=== PATIENT | female | born 1935 | race Caucasian/White ===

== ENCOUNTER 2016-08-18 07:08 | Emergency (ER) | payer MEDICARE ==
[~2016-08-18] VITALS: Ht 162.6 cm; Wt 77.1 kg
[~2016-08-18 07:08] MED LIST: ALEN70TA47 PO; ALLP300T PO; ALOE; ASP81TEC PO; ASPRIN PO; DOXY100C2 PO; GARLIC; HYDR-2856 PO; HYDR-3448 PO; HYDR1TAB8 PO; HYDROXYZINE; LAVAZA PO; MAGN400C PO; NF-METANX PO; OMEP20CA12 PO; ONDAN4ODT PO; POTASSIUM; SULF1TAB38 PO; TRAM-21 PO; VALS1TAB74 PO; [UNRECOGNIZED DRUG - OTHER] PO
[2016-08-18] MEDS ORDERED: diphenhydrAMINE 50 MG/ML INJ (BENADRYL) IM ONE (07:30)
[2016-08-18] MEDS ORDERED: TRAM50TA2 PO (07:37)
[2016-08-18] MEDS ORDERED: SITA100T12 PO (07:39)
[2016-08-18] MEDS ORDERED: SULF1TAB35 PO (07:40)
--- NOTE | 2016-08-18 07:48 | ED Integumentary General ---
General Chief Complaint: Allergic Reaction Stated Complaint: HIVES Nursing Triage Note: c/o rash with scattered wheals over body. Onset this morning. Pt has been on Bactrim since Sunday. Source: patient Exam Limitations: no limitations History of Present Illness Time seen by provider: 07:43 Initial Comments The patient is an 81-year-old white female who presents with a chief complaint of an extremely itchy rash. She reports that about a week ago she was placed on Bactrim for an infected finger. She had not previously had any problems with Bactrim but does have allergies stated to penicillin and erythromycin and clindamycin. The course of treatment for the finger has been completed but she now has several areas of extremely itchy eruptions Timing/Duration: this evening Location: generalized Possible Cause: medications Associated Symptoms: denies symptoms Allergies and Home Medications Allergies Coded Allergies: Penicillins (Unverified Allergy, Unknown, 09/22/15) clindamycin (Unverified Allergy, Unknown, 09/22/15) Uncoded Allergies: EES (Allergy, Unknown, 09/22/15) Home Medications Sitagliptin Phosphate 100 Mg Tablet, 100 MG PO, (Reported) Sulfamethoxazole/Trimethoprim 1 Each Tablet, 1 EACH PO BID, (Reported) Tramadol HCl 50 Mg Tablet, 50 MG PO Q8H, (Reported) Constitutional: see HPI EENTM: hearing loss, no symptoms reported Respiratory: no symptoms reported Cardiovascular: no symptoms reported Gastrointestinal: no symptoms reported Musculoskeletal: no symptoms reported Skin: no symptoms reported Psychiatric/Neurological: No Symptoms Reported Endocrine: No Symptoms Reported Hematologic/Lymphatic: No Symptoms Reported Past Umajfmf-Tytgzs-Mgulsa Hx Patient Social History Alcohol Use: Denies Use Recreational Drug Use: No Smoking Status: Never a Smoker Recent Foreign Travel: No Contact w/Someone Who Travel: No Recent Infectious Disease Expo: No Recent Hopitalizations: No Surgeries HX Surgeries: Yes (HERNIA REP) Respiratory Hx Respiratory Disorders: No Cardiovascular Hx Cardiac Disorders: Yes Neurological Hx Neurological Disorders: No Reproductive System Hx Reproductive Disorders: No Genitourinary Hx Genitourinary Disorders: Yes Genitourinary Disorders: Kidney Stones Gastrointestinal Hx Gastrointestinal Disorders: Yes Gastrointestinal Disorders: Gastroesophageal Reflux Musculoskeletal Hx Musculoskeletal Disorders: Yes Musculoskeletal Disorders: Arthritis, Fibromyalgia Endocrine Hx Endocrine Disorders: Yes HEENT HX ENT Disorders: No Cancer Hx Cancer: Yes Cancer: Skin Psychosocial Hx Psychiatric Problems: No Integumentary HX Skin/Integumentary Disorder: No Blood Transfusions Hx Blood Disorders: No Family Medical History Significant Family History: No Pertinent Family Hx Physical Exam Vital Signs Vital Sign - Last 12Hours 08/18/16 07:18 Temp 97.9 Pulse 80 Resp 16 B/P (MAP) 138/69 Pulse Ox 97 Capillary Refill : Less Than 3 Seconds General Appearance: WD/WN, no apparent distress HEENT: normal ENT inspection Neck: non-tender, full range of motion, supple, normal inspection Cardiovascular: normal peripheral pulses, regular rate, rhythm, no edema, no gallop, no JVD, no murmur Respiratory: chest non-tender, lungs clear, normal breath sounds, no respiratory distress, no accessory muscle use Gastrointestinal: normal bowel sounds, non tender, soft, no organomegaly, no pulsatile mass Extremities: normal range of motion, non-tender, normal inspection, no pedal edema, no calf tenderness, normal capillary refill, pelvis stable Neurologic/Psychiatric: 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 There are multiple raised welts with in the erythema. She states there is similar eruption and scattered areas on her body but especially the right axilla. Progress/Results/Core Measures Results/Orders My Orders Orders - PREM AARON MD Diphenhydramine Injection (Benadryl Inje (08/18/16 07:30) Medications Given in ED Current Medications Medications Dose Ordered Sig/Xenia Route Start Time Stop Time Status Last Admin Dose Admin Diphenhydramine HCl 50 mg ONCE ONCE IM 08/18/16 07:30 08/18/16 07:31 DC 08/18/16 07:32 50 MG Vital Signs/I&O Vital Sign - Last 12Hours 08/18/16 08/18/16 07:18 07:32 Temp 97.9 97.9 Pulse 80 Resp 16 B/P (MAP) 138/69 Pulse Ox 97 Blood Pressure Mean: 92 Departure Communication Progress Notes Was discussed with patient that the timeframe is certainly consistent with this being a sulfa reaction she should not take any sulfa containing drugs in the future. Impression Impression: Primary Impression: Urticaria due to drug allergy Disposition: HOME, SELF-CARE Condition: Improved Departure-Patient Inst. Decision time for Depature: 07:50 Referrals: EILEEN CHANEL DO (PCP/Family) Primary Care Physician Patient Instructions: Drug Allergy Add. Discharge Instructions: All discharge instructions reviewed with patient and/or family. Voiced understanding. Acquire Benadryl [id number] from the pharmacy. Take 25-50 mg every 4 hours as needed to control itching. Acquire Cortizone 10 also [id number]. Apply this similarly to affected areas as often as every 4 hours. Consider yourself allergic to sulfa drugs. Avoid hot bath or shower for at least 48 hours after resolution of rash. You may take tepid showers PREM AARON MD Aug 18, 2016 07:48
[2016-08-18] MEDS ORDERED: methylPREDNISolone 125 MG (Solu-MEDROL) VIAL IM ONE (08:00)
[2016-08-18 08:19] VITALS: BP 134/70
== END 2016-08-18 08:19 | disposition home or self-care (01) ==
LOC: EDUNIT# 07:08 → ER 07:09
DX: L50.9 Urticaria, unspecified (principal); T37.0X5A Adverse effect of sulfonamides, initial encounter
CPT/HCPCS: 96372; 99282

== ENCOUNTER → 2018-03-07 | Outpatient (CLI) | payer MEDICARE ==
[~2018-03-07] MED LIST changes: +SITA100T12 PO; +SULF1TAB35 PO; +TRAM50TA2 PO
--- NOTE | 2018-03-07 17:44 | Diagnostic Imaging Report ---
INDICATION: Hip pain after fall. Two views were obtained. FINDINGS: The alignment is normal. There is no fracture or dislocation. Soft tissues are unremarkable. IMPRESSION: No acute fracture or dislocation. Dictated by: Dictated on workstation # [id number]
--- NOTE | 2018-03-07 17:45 | Diagnostic Imaging Report ---
INDICATION: Pain. Three views were obtained. FINDINGS: The alignment is normal. There is no acute fracture or dislocation. Soft tissues are unremarkable. IMPRESSION: No acute fracture or dislocation. Dictated by: Dictated on workstation # [id number]
== END ==
LOC: RAD 17:08
PROVIDERS: ATTEND Family Medicine
DX: M25.521 Pain in right elbow (principal); M25.551 Pain in right hip; W19.XXXA Unspecified fall, initial encounter
CPT/HCPCS: 73080; 73502

== ENCOUNTER 2018-04-19 20:13 | Emergency (ER) | payer MEDICARE ==
[~2018-04-19] VITALS: Ht 170.2 cm; Wt 74.8 kg
--- OUTSIDE RECORDS SUMMARY | 2018-04-19 20:45 | XMS REPORT | Continuity of Care Document ---
Author Author [facility] Organization [facility] Address Unknown Phone Unavailable Allergies Active Description Code Type Severity Reaction Onset Reported/Identified Relationship to Patient Clinical Status Yes clindamycin [id number] Drug Allergy Unknown N/A 09/22/2015 Yes EES EES Unknown N/ A 09/22/2015 Yes Penicillins [id number] Drug Allergy Unknown N/A 09/22/2015 Medications There is no data. Problems Date Dx Coded Attending Type Code Diagnosis Diagnosed By 12/29/2012 LANDON SHANNON, EARLINE Laboy Ot 682.3 CELLULITIS OF ARM 12/29/2012 EARLINE NAVARRETE MD Ot 719.42 JOINT PAIN-UP/ARM 09/22/2015 DIONTE RODRIGUEZ DO Ot M85.872 OT DISRD OF BONE DENSITY AND STRUCTURE, 09/22/2015 DIONTE RODRIGUEZ DO Ot S93.602A UNSPECIFIED SPRAIN OF LEFT FOOT, INITIAL 09/22/2015 DIONTE RODRIGUEZ DO Ot W19.XXXA UNSPECIFIED FALL, INITIAL ENCOUNTER 09/22/2015 DIONTE RODRIGUEZ DO Ot Y99.8 OTHER EXTERNAL CAUSE STATUS 09/23/2015 DIONTE RODRIGUEZ DO, Ot M85.872 OT DISRD OF BONE DENSITY AND STRUCTURE, 09/23/2015 DIONTE RODRIGUEZ DO, Ot S93.602A UNSPECIFIED SPRAIN OF LEFT FOOT, INITIAL 09/23/2015 DIONTE RODRIGUEZ DO Ot W19.XXXA UNSPECIFIED FALL, INITIAL ENCOUNTER 09/23/2015 DIONTE RODRIGUEZ DO Ot Y99.8 OTHER EXTERNAL CAUSE STATUS 09/28/2015 DIONTE RODRIGUEZ DO, Ot M85.872 OTH DISRD OF BONE DENSITY AND STRUCTURE, 09/28/2015 DIONTE RODRIGUEZ DO Ot S93.602A UNSPECIFIED SPRAIN OF LEFT FOOT, INITIAL 09/28/2015 DIONTE RODRIGUEZ DO Ot W19.XXXA UNSPECIFIED FALL, INITIAL ENCOUNTER 09/28/2015 DIONTE RODRIGUEZ DO Ot Y99.8 OTHER EXTERNAL CAUSE STATUS 08/18/2016 PREM AARON MD Ot L50.9 URTICARIA, UNSPECIFIED 08/18/2016 PREM AARON MD Ot T37.0X5A ADVERSE EFFECT OF SULFONAMIDES, INITIAL 03/08/2018 YANIQUE DO, EILEEN S Ot 719.46 JOINT PAIN-L/LEG 03/08/2018 TINANDER DO, EILEEN S Ot 719.66 JOINT SYMPTOM NEC-L/LEG 04/01/2018 TINANDER DO, EILEEN S Ot M25.521 PAIN IN RIGHT ELBOW 04/01/2018 TINAND DO, EILEEN S Ot M25.551 PAIN IN RIGHT HIP 04/01/2018 TINAND DO, EILEEN S Ot W19.XXXA UNSPECIFIED FALL, INITIAL ENCOUNTER 04/18/2018 YANIQUE DO, EILEEN S Ot M25.521 PAIN IN RIGHT ELBOW 04/18/2018 TINAND DO, EILEEN S Ot M25.551 PAIN IN RIGHT HIP 04/18/2018 TINAND DO, EILEEN S Ot W19.XXXA UNSPECIFIED FALL, INITIAL ENCOUNTER Procedures There is no data. Results There is no data. Encounters ACCT No. Visit Date/Time Discharge Status Pt. Type Provider Facility Loc./Unit Complaint [id number] 03/07/2018 17:08:00 03/07/2018 23:59:59 CLS Outpatient DARVIN SADLER DOLINE S [facility] RAD FALL W/ L HIP/ ELBOW PAIN [id number] 08/18/2016 07:09:00 08/18/2016 08:19:00 DIS Emergency PREM AARON MD [facility] ER HIVES [id number] 09/22/2015 14:28:00 09/22/2015 16:03:00 DIS Emergency DIONTE RODRIGUEZ DO [facility] ER FALL/LEFT FOOT INJURY [id number] 02/11/2014 14:51:00 02/11/2014 23:59:59 CLS Outpatient SEGUN EILEEN JI S [facility] RAD R KNEE PAIN/ CREPITUS [id number] 12/29/2012 09:17:00 12/29/2012 10:40:00 DIS Emergency LANDON SHANNON, EARLINE Laboy [facility] ER CONFUSED PAIN IN ELBOW AND SHOULDER 08/02/11 03/07/2018 14:39:44 03/07/2018 23:59:59 CLS Outpatient Eileen Sadler
[2018-04-19 23:04] LABS: BASOPHILS % (AUTO) 0 % (0-10); EOSINOPHILS # (AUTO) 0.2 10^3/uL (0.0-0.3); EOSINOPHILS % (AUTO) 3 % (0-10); HEMATOCRIT 35 % (35-52); HEMOGLOBIN 11.7 G/DL (11.5-16.0); LYMPHOCYTES # (AUTO) 1.5 X 10^3 (1.0-4.0); LYMPHOCYTES % (AUTO) 20 % (12-44); MEAN CORPUSCULAR HEMOGLOBIN 29 PG (25-34); MEAN CORPUSCULAR HGB CONC 33 G/DL (32-36); MEAN CORPUSCULAR VOLUME 87 FL (80-99); MONOCYTES # (AUTO) 0.7 X 10^3 (0.0-1.0); MONOCYTES % (AUTO) 9 % (0-12); NEUTROPHILS % (AUTO) 67 % (42-75); PLATELET COUNT 177 10^3/uL (130-400); RED BLOOD COUNT 4.05 10^6/uL (4.35-5.85); RED CELL DISTRIBUTION WIDTH 13.5 % (10.0-14.5); WHITE BLOOD COUNT 7.4 10^3/uL (4.3-11.0)
[2018-04-19 23:23] LABS: ALBUMIN 4.1 GM/DL (3.2-4.5); BILIRUBIN,TOTAL 1.2 MG/DL (0.1-1.0); CALCIUM 10.4 MG/DL (8.5-10.1); CREATININE SERUM 1.04 MG/DL (0.60-1.30); POTASSIUM 3.7 MMOL/L (3.6-5.0); TOTAL PROTEIN 7.7 GM/DL (6.4-8.2)
[2018-04-20 01:14] LABS: BACTERIA,URINE LARGE /HPF; BILIRUBIN,URINE NEGATIVE (NEGATIVE); CLARITY,URINE VERY CLOUDY; COLOR,URINE YELLOW; GLUCOSE, URINE (UA) 4+ (NEGATIVE); KETONES,URINE NEGATIVE (NEGATIVE); LEUKOCYTE ESTERASE ,URINE 2+ (NEGATIVE); NITRITE,URINE NEGATIVE (NEGATIVE); PH,URINE 6 (5-9); PROTEIN,URINE NEGATIVE (NEGATIVE); SQUAMOUS EPITHELIAL CELL,UR 0-2 /HPF; UROBILINOGEN,URINE NORMAL (NORMAL)
--- NOTE | 2018-04-20 01:21 | ED Fall/Injury ---
General Chief Complaint: Trauma-Non Activation Stated Complaint: FALL/L HIP AND ARM PAIN Nursing Triage Note: Pt brought to ED by family. Family reports pt has dementia and when pt was getting up from reciner pt forgot to use recliner and fell when trying to walk. Pt c/o R hand pain, and L hip and elbow pain. Pt has hematoma to R thumb, large amount of swelling to L elbow. Family reports fall three weeks ago. Source: patient Exam Limitations: no limitations History of Present Illness Date Seen by Provider: Apr 19, 2018 Time Seen by Provider: 21:45 Initial Comments This 82-year-old woman is brought to the emergency room by her family with concerns about injuries she sustained from a fall. She fell onto her left side in late February and had some minor injuries at that time. Tonight she was getting up from her recliner and forgot to use the walker. As a result she fell. The fall was not witnessed. She denies any injury or pain to her head. She complains of pain at the left hip, right thumb, and left elbow. She has significant swelling at the left elbow site. Patient does have dementia and is hard of hearing. Temperature is 100.0. She has no other signs or symptoms of acute infectious illness. Location Injury Occurred: home Allergies and Home Medications Allergies Coded Allergies: Penicillins (Unverified Allergy, Unknown, 09/22/15) clindamycin (Unverified Allergy, Unknown, 09/22/15) Uncoded Allergies: EES (Allergy, Unknown, 09/22/15) Home Medications Sulfamethoxazole/Trimethoprim 1 Each Tablet, 1 EACH PO BID, (Reported) Sulfamethoxazole/Trimethoprim 1 Each Tablet, 1 EACH PO BID Prescribed by: EARLINE ARMENDARIZ on 04/20/18 0136 Tramadol HCl 50 Mg Tablet, 50 MG PO Q8H, (Reported) Patient Home Medication List Home Medication List Reviewed: Yes Review of Systems Review of Systems Constitutional: see HPI Eyes: No Symptoms Reported Ears, Nose, Mouth, Throat: no symptoms reported Respiratory: no symptoms reported Cardiovascular: no symptoms reported Gastrointestinal: no symptoms reported Genitourinary: no symptoms reported : No Musculoskeletal: see HPI Skin: no symptoms reported Psychiatric/Neurological: No Symptoms Reported Past Uqbilff-Qcdbvl-Exgpcl Hx Patient Social History Alcohol Use: Denies Use Recreational Drug Use: No 2nd Hand Smoke Exposure: No Recent Foreign Travel: No Contact w/Someone Who Travel: No Recent Infectious Disease Expo: No Recent Hopitalizations: No Physical Abuse: No Sexual Abuse: No Past Medical History Surgeries: Yes (HERNIA REP) Respiratory: No Cardiac: Yes Neurological: No Reproductive Disorders: No Kidney Stones Gastrointestinal: Yes Gastroesophageal Reflux Musculoskeletal: Yes Arthritis, Fibromyalgia Endocrine: Yes Cancer: Yes Skin Psychosocial: No Integumentary: No Blood Disorders: No Family Medical History No Pertinent Family Hx Physical Exam Vital Signs Vital Signs - First Documented 04/19/18 21:20 Temp 100.0 Pulse 95 Resp 18 B/P (MAP) 170/75 (106) Pulse Ox 96 O2 Delivery Room Air Capillary Refill : Less Than 3 Seconds Height, Weight, BMI Height: 5'7.00" Weight: 165lbs. oz. 74.183582bk; BMI Method:Stated General Appearance: WD/WN, no apparent distress HEENT: PERRL/EOMI, normal ENT inspection Neck: non-tender, normal inspection Cardiovascular: regular rate, rhythm, no edema, no murmur Respiratory: lungs clear, normal breath sounds, no respiratory distress, no accessory muscle use Gastrointestinal: normal bowel sounds, non tender, soft Extremities: no pedal edema, other (swelling and tenderness to the posterior left elbow. Bruising at the base of the right thumb with tenderness. Tenderness to the left hip with palpation and pain with rotation of the left hip. 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, no motor/sensory deficits, alert, normal mood/affect, other (Confused conversation from dementia at baseline) Skin: normal color, warm/dry [place] Coma Score Best Eye Response: (4) Open Spontaneously Best Verbal Response: (4) Confused Conversation Best Motor Response: (6) Obeys Commands [place] Total: 14 Progress/Results/Core Measures Results/Orders Lab Results Laboratory Tests Test 04/19/18 22:55 04/20/18 00:43 Range/Units White Blood Count 7.4 4.3-11.0 10^3/uL Red Blood Count 4.05 L 4.35-5.85 10^6/uL Hemoglobin 11.7 11.5-16.0 G/DL Hematocrit 35 35-52 % Mean Corpuscular Volume 87 80-99 FL Mean Corpuscular Hemoglobin 29 25-34 PG Mean Corpuscular Hemoglobin Concent 33 32-36 G/DL Red Cell Distribution Width 13.5 10.0-14.5 % Platelet Count 177 130-400 10^3/uL Mean Platelet Volume 10.0 7.4-10.4 FL Neutrophils (%) (Auto) 67 42-75 % Lymphocytes (%) (Auto) 20 12-44 % Monocytes (%) (Auto) 9 0-12 % Eosinophils (%) (Auto) 3 0-10 % Basophils (%) (Auto) 0 0-10 % Neutrophils # (Auto) 5.0 1.8-7.8 X 10^3 Lymphocytes # (Auto) 1.5 1.0-4.0 X 10^3 Monocytes # (Auto) 0.7 0.0-1.0 X 10^3 Eosinophils # (Auto) 0.2 0.0-0.3 10^3/uL Basophils # (Auto) 0.0 0.0-0.1 10^3/uL Sodium Level 136 135-145 MMOL/L Potassium Level 3.7 3.6-5.0 MMOL/L Chloride Level 105 98-107 MMOL/L Carbon Dioxide Level 18 L 21-32 MMOL/L Anion Gap 13 5-14 MMOL/L Blood Urea Nitrogen 13 7-18 MG/DL Creatinine 1.04 0.60-1.30 MG/DL Estimat Glomerular Filtration Rate 50 BUN/Creatinine Ratio 13 Glucose Level 266 H 70-105 MG/DL Calcium Level 10.4 H 8.5-10.1 MG/DL Corrected Calcium 10.3 H 8.5-10.1 MG/DL Total Bilirubin 1.2 H 0.1-1.0 MG/DL Aspartate Amino Transf (AST/SGOT) 32 5-34 U/L Alanine Aminotransferase (ALT/SGPT) 24 0-55 U/L Alkaline Phosphatase 77 40-136 U/L C-Reactive Protein High Sensitivity 0.37 0.00-0.50 MG/DL Total Protein 7.7 6.4-8.2 GM/DL Albumin 4.1 3.2-4.5 GM/DL Urine Color YELLOW Urine Clarity VERY CLOUDY H Urine pH 6 5-9 Urine Specific [place] 1.020 1.016-1.022 Urine Protein NEGATIVE NEGATIVE Urine Glucose (UA) 4+ H NEGATIVE Urine Ketones NEGATIVE NEGATIVE Urine Nitrite NEGATIVE NEGATIVE Urine Bilirubin NEGATIVE NEGATIVE Urine Urobilinogen NORMAL NORMAL MG/DL Urine Leukocyte Esterase 2+ H NEGATIVE Urine RBC (Auto) NEGATIVE NEGATIVE Urine RBC NONE /HPF Urine WBC 10-25 H /HPF Urine Squamous Epithelial Cells 0-2 /HPF Urine Crystals NONE /LPF Urine Bacteria LARGE H /HPF Urine Casts NONE /LPF Urine Mucus NEGATIVE /LPF Urine Culture Indicated YES My Orders Orders - EARLINE NAVARRETE MD Chest 1 View, Ap/Pa Only (04/19/18 21:56) Elbow, Left, 3 Views (04/19/18 21:56) Hand, Right, 3 Views (04/19/18 21:56) Pelvis With Left Hip 2-3 Views (04/19/18 21:56) Cbc With Automated Diff (04/19/18 21:56) Comprehensive Metabolic Panel (04/19/18 21:56) Hs C Reactive Protein (04/19/18 21:56) Ua Culture If Indicated (04/19/18 21:56) Saline Lock/Iv-Start (04/19/18 21:56) Ct Extremity Upper Left Wo (04/20/18 00:01) Urine Culture (04/20/18 00:43) Sulfamethoxazole/Trimet Ds Tab (Bactrim (04/20/18 01:45) Vital Signs/I&O 04/19/18 21:20 Temp 100.0 Pulse 95 Resp 18 B/P (MAP) 170/75 (106) Pulse Ox 96 O2 Delivery Room Air Blood Pressure Mean: 106 Progress Progress Note : Progress Note Patient was thoroughly imaged. There is questionable lucency on the left elbow x-ray. This was followed by CT which showed no fracture. Because of patient's borderline temperature, labs were assessed along with a urinalysis. There was suggestion of urinary tract infection. This was treated with Bactrim. Bactrim was selected due to penicillin allergy and prior sensitivity to Bactrim on UA. Diagnostic Imaging Diagonstic Imaging: Xray Plain Films/CT/US/NM/MRI: chest Comments Chest x-ray viewed by me. Report not yet available. No acute features identified. Diagonstic Imaging: Xray Plain Films/CT/US/NM/MRI: hand Comments Right hand x-ray viewed by me. Report not yet available. No acute injuries identified. There is significant degenerative and arthritic change. Diagonstic Imaging: Xray Plain Films/CT/US/NM/MRI: elbow Comments X-ray of the left elbow viewed by me. Compared with prior. Report not yet available. There is questionable lucency of the distal femur. Follow-up with CT was ordered. Diagonstic Imaging: Xray Plain Films/CT/US/NM/MRI: pelvis, hip Comments X-ray of the left hip and pelvis was viewed by me. Report not yet available. No acute injuries identified. Diagonstic Imaging: CT Plain Films/CT/US/NM/MRI: elbow Comments CT of the left elbow viewed by me and [facility] report reviewed. No acute injuries identified. Departure Impression Primary Impression: Fall on same level Qualified Codes: W18.30XA - Fall on same level, unspecified, initial encounter Additional Impressions: Urinary tract infection Qualified Codes: N39.0 - Urinary tract infection, site not specified Contusion of right hand Qualified Codes: S60.221A - Contusion of right hand, initial encounter Injury of left elbow Qualified Codes: S59.902A - Unspecified injury of left elbow, initial encounter Left hip pain Disposition: HOME, SELF-CARE Condition: Improved Departure-Patient Inst. Decision time for Depature: 01:30 Referrals: EILEEN CHANEL DO (PCP/Family) Primary Care Physician Patient Instructions: Urinary Tract Infection, Adult (DC) Add. Discharge Instructions: Drink plenty of clear liquids. Complete your antibiotic as prescribed. Follow-up with your primary care provider early next week to review urine culture results. When walking always use your walker. For pain may take ibuprofen up to 200 mg every 6 hours as needed. You may also take Tylenol (acetaminophen) up to 1000 mg every 6 hours as needed. Icing affected areas in 20 minute intervals may also be helpful in reducing pain and swelling. Return to emergency room if symptoms worsen. All discharge instructions reviewed with patient and/or family. Voiced understanding. Scripts Sulfamethoxazole/Trimethoprim (Bactrim Ds Tablet) 1 Each Tablet 1 EACH PO BID, #14 TAB Prov: EARLINE NAVARRETE MD 04/20/18 Copy Copies To 1: EILEEN CHANEL JOSHUA T MD Apr 20, 2018 01:21
[2018-04-20] MEDS ORDERED: SULF1TAB35 PO (01:36)
[2018-04-20] MEDS ORDERED: TRIM/SULFAMETH 160/800 (SEPTRA DS) TAB PO ONE (01:45)
[2018-04-20 01:46] VITALS: BP 136/75
--- NOTE | 2018-04-20 06:21 | Diagnostic Imaging Report ---
EXAMINATION: Left elbow at 1026 PM INDICATION: Fell, elbow pain Three views were obtained. The recent left elbow exam of 03/07/2018 failed to show any sign of an acute bony abnormality. On this study, there is still no fracture, dislocation or acute bony abnormality evident. The posterior fat-pad of the elbow joint is not elevated. However, in the interval since the prior exam soft tissue edema has developed along the posterior aspect of the elbow joint. This may be related to soft tissue edema alone or perhaps olecranon bursitis. Clinical followup is recommended. IMPRESSION: 1. There is no evidence for an acute bony abnormality. 2. The soft tissue edema along the posterior aspect of the elbow joint could be secondary to olecranon bursitis. Clinical followup is recommended. Dictated by: Dictated on workstation # [id number]
--- NOTE | 2018-04-20 06:40 | Diagnostic Imaging Report ---
EXAMINATION: Right hand at 1022 PM INDICATION: Injury, hand pain Three views were obtained. There are no prior studies available for comparison. There is no fracture, dislocation or acute bony abnormality evident. 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 There is also moderate narrowing of the radiocarpal joint and mild degenerative disease of the triscaphe joint. The soft tissues are unremarkable. IMPRESSION: 1. There is no evidence for an acute bony abnormality. 2. There is degenerative disease involving the hand as described above. Dictated by: Dictated on workstation # [id number]
--- NOTE | 2018-04-20 06:46 | Diagnostic Imaging Report ---
EXAMINATION: Pelvis and left hip at 1040 PM INDICATION: Hip pain A single AP view of the pelvis and AP and lateral views of the left hip were obtained. There is no fracture, dislocation or acute bony abnormality evident. There is mild degenerative disease involving both hip joints. The degenerative changes involving the left hip are similar to the prior exam of 03/02/2018. There is also mild sclerosis of the sacroiliac joints bilaterally. The soft tissues are unremarkable. IMPRESSION: There is no evidence for an acute bony abnormality. Dictated by: Dictated on workstation # [id number]
--- NOTE | 2018-04-20 06:47 | Diagnostic Imaging Report ---
EXAMINATION: Supine AP chest at 1038h. INDICATION: Fell, chest pain The heart is enlarged and similar to the CT chest exam of 12/12/2011. The lungs are clear. There is no evidence for failure, pneumonia or for a pleural effusion. The mediastinum is not widened. The osseous structures are intact. IMPRESSION: There is cardiomegaly but there is no evidence for an acute cardiopulmonary abnormality. Dictated by: Dictated on workstation # [id number]
--- NOTE | 2018-04-20 07:21 | Diagnostic Imaging Report ---
PROCEDURE: CT left upper extremity without contrast. TECHNIQUE: Multiple contiguous axial images were obtained through the left upper extremity without the use of intravenous contrast. INDICATION: Injury, elbow pain The plain film examination of the elbow joint performed prior to the study failed to show any sign of an acute bony abnormality. On this exam, there is still no fracture, dislocation or acute bony abnormality evident. There is mild degenerative disease of the elbow joint. There is no sign of a loose body or of a joint effusion. As suggested on the plain film exam there is soft tissue edema along the posterior aspect of the elbow joint. This could be secondary to olecranon bursitis. IMPRESSION: 1. There is no evidence for an acute bony abnormality. 2. The soft tissue edema along the posterior aspect of the elbow joint may be related to olecranon bursitis. Clinical followup is recommended. Dictated by: Dictated on workstation # [id number]
== END 2018-04-20 01:46 | disposition home or self-care (01) ==
LOC: EDUNIT# 20:13 → ER 20:14
DX: S60.221A Contusion of right hand, initial encounter (principal); S59.902A Unspecified injury of left elbow, initial encounter; M25.552 Pain in left hip; N39.0 Urinary tract infection, site not specified; K21.9 Gastro-esophageal reflux disease without esophagitis; F03.90 Unspecified dementia, unspecified severity, without behavioral disturbance, psychotic disturbance, mood disturbance, and anxiety; R40.2142 Coma scale, eyes open, spontaneous, at arrival to emergency department; R40.2242 Coma scale, best verbal response, confused conversation, at arrival to emergency department; R40.2362 Coma scale, best motor response, obeys commands, at arrival to emergency department; Z85.828 Personal history of other malignant neoplasm of skin; Z88.0 Allergy status to penicillin; Z88.8 Allergy status to other drugs, medicaments and biological substances; Z98.890 Other specified postprocedural states; Z87.442 Personal history of urinary calculi; W18.30XA Fall on same level, unspecified, initial encounter
CPT/HCPCS: 36415; 71045; 73080; 73130; 73200; 80053; 81000; 85025; 86141; 87077; 87088; 87186

== ENCOUNTER 2018-12-11 07:49 | Inpatient (IN) | payer MEDICARE ==
[~2018-12-11] VITALS: Ht 167.6 cm; Wt 77.8 kg
[2018-12-11] MEDS ORDERED: LACTATED RINGERS 1,000 ML IV ONE ×2 (07:54→08:05)
[2018-12-11] MEDS ORDERED: ACETAMINOPHEN 650 MG SUPP (TYLENOL) PR STA (08:05)
--- NOTE | 2018-12-11 08:14 | ED General ---
General Chief Complaint: Neurological Problems Stated Complaint: WEAKNESS Nursing Triage Note: PT TO ROOM 5 VIA EMS WITH CO WEAKNESS FOR A FEW DAYS. Nursing Sepsis Screen: Possible Severe Sepsis Risk Source of Information: Patient Exam Limitations: No Limitations History of Present Illness Date Seen by Provider: Dec 11, 2018 Time Seen by Provider: 07:50 Initial Comments Here by [facility] with report of increasing weakness over the last 3 days but markedly worse since last night. Patient is currently being treated for urinary tract infection. reports that she's been eating well through last night but today was very infused and weak when she woke up. She does have minimal responses does appear quite well. does note that the abdomen has increasingly been swelling. She does not have bowel movement for several days. She apparently ate well at 10 PM last night. Arrives with fever greater than 102 Fahrenheit. Timing/Duration: 2-3 Days, Getting Worse Severity: Moderate, Severe Associated Systoms: No Cough; Fever/Chills; No Nausea/Vomiting; Weakness Allergies and Home Medications Allergies Coded Allergies: Penicillins (Unverified Allergy, Unknown, 09/22/15) clindamycin (Unverified Allergy, Unknown, 09/22/15) Uncoded Allergies: EES (Allergy, Unknown, 09/22/15) Home Medications Sulfamethoxazole/Trimethoprim 1 Each Tablet, 1 EACH PO BID, (Reported) Sulfamethoxazole/Trimethoprim 1 Each Tablet, 1 EACH PO BID Prescribed by: EARLINE ARMENDARIZ on 04/20/18 0136 Tramadol HCl 50 Mg Tablet, 50 MG PO Q8H, (Reported) Patient Home Medication List Home Medication List Reviewed: Yes Review of Systems Review of Systems Constitutional: see HPI, fever, weakness EENTM: no symptoms reported Respiratory: No cough, No short of breath Gastrointestinal: abdominal pain; No nausea, No vomiting Genitourinary: see HPI Psychiatric/Neurological: See HPI, Weakness Review of systems Limited and unable to complete due to patient's medical condition Past Ljdlpyb-Lhevaq-[id number] Hx Past Med/Social Hx: Reviewed Nursing Past Med/Soc Hx Patient Social History Alcohol Use: Denies Use Recreational Drug Use: No 2nd Hand Smoke Exposure: No Recent Foreign Travel: No Contact w/Someone Who Travel: No Recent Infectious Disease Expo: No Recent Hopitalizations: No Past Medical History Surgeries: Yes (HERNIA REP) Abdominal Respiratory: No Cardiac: Yes Hypertension Neurological: Yes TIA : No Reproductive Disorders: No Kidney Stones Gastrointestinal: Yes Gastroesophageal Reflux Musculoskeletal: Yes Arthritis, Fibromyalgia Endocrine: Yes Diabetes, Non-Insulin dep Hearing Impairment: Denies Cancer: Yes Skin Psychosocial: No Integumentary: No Blood Disorders: No Family Medical History Reviewed Nursing Family Hx No Pertinent Family Hx Physical Exam-Suspected Sepsis Physical Exam Vital Signs Vital Signs - First Documented 12/11/18 07:56 Temp 102.4 Pulse 103 Resp 20 B/P (MAP) 173/76 (108) Pulse Ox 95 O2 Delivery Nasal Cannula O2 Flow Rate 2.00 Capillary Refill : Less Than 3 Seconds Blood Pressure Mean: 108 Height, Weight, BMI Height: 5'6.00" Weight: 165lbs. oz. 74.754773pc; BMI Method:Stated General Appearance: Mild Distress, Obese HEENT: PERRL/EOMI, Pharynx Normal Neck: Non Tender, Supple Respiratory: Crackles (bilateral bases), Other (tachypnea) Cardiovascular: Systolic Murmur (holosystolic blowing murmur), Tachycardia Gastrointestinal: Abnormal Bowel Sounds (hypoactive), Distended, Tenderness (suprapubic) Back: No CVA Tenderness, No Vertebral Tenderness Extremity: Non Tender, No Pedal Edema, Pelvis Stable Neurologic/Psychiatric: Disoriented, Other (wakes to verbal and follow some simple commands. Response to pain.) Skin: pallor; No rash, No ulcerations Focused Exam Lactate Level 12/11/18 08:37: Lactic Acid Level 3.41*H Lactic Acid Level Laboratory Tests Test 12/11/18 08:37 Lactic Acid Level 3.41 MMOL/L (0.50-2.00) *H Progress/Results/Core Measures Suspected Sepsis Recent Fever Within 48 Hours: Yes Infection Criteria Present: Suspected New Infection New/Unexplained Altered Menta: Yes Sepsis Screen: Possible Severe Sepsis Risk SIRS Temperature:102.4 Pulse: 103 Respiratory Rate: 20 Laboratory Tests 12/11/18 08:10: White Blood Count 7.0 Blood Pressure 173 /76 Mean: 108 12/11/18 08:37: Lactic Acid Level 3.41*H Laboratory Tests 12/11/18 08:10: Creatinine 0.92, INR Comment 1.1, Platelet Count 163, Total Bilirubin 1.8H Results/Orders Lab Results Laboratory Tests Test 12/11/18 08:10 12/11/18 08:20 12/11/18 08:37 Range/Units White Blood Count 7.0 4.3-11.0 10^3/uL Red Blood Count 3.91 L 4.35-5.85 10^6/uL Hemoglobin 10.2 L 11.5-16.0 G/DL Hematocrit 32 L 35-52 % Mean Corpuscular Volume 81 80-99 FL Mean Corpuscular Hemoglobin 26 25-34 PG Mean Corpuscular Hemoglobin Concent 32 32-36 G/DL Red Cell Distribution Width 14.5 10.0-14.5 % Platelet Count 163 130-400 10^3/uL Mean Platelet Volume 10.4 7.4-10.4 FL Neutrophils (%) (Auto) 80 H 42-75 % Lymphocytes (%) (Auto) 9 L 12-44 % Monocytes (%) (Auto) 8 0-12 % Eosinophils (%) (Auto) 2 0-10 % Basophils (%) (Auto) 1 0-10 % Neutrophils # (Auto) 5.6 1.8-7.8 X 10^3 Lymphocytes # (Auto) 0.7 L 1.0-4.0 X 10^3 Monocytes # (Auto) 0.6 0.0-1.0 X 10^3 Eosinophils # (Auto) 0.2 0.0-0.3 10^3/uL Basophils # (Auto) 0.0 0.0-0.1 10^3/uL Prothrombin Time 14.6 12.2-14.7 SEC INR Comment 1.1 0.8-1.4 Activated Partial Thromboplast Time 33 24-35 SEC Sodium Level 136 135-145 MMOL/L Potassium Level 4.2 3.6-5.0 MMOL/L Chloride Level 105 98-107 MMOL/L Carbon Dioxide Level 16 L 21-32 MMOL/L Anion Gap 15 H 5-14 MMOL/L Blood Urea Nitrogen 14 7-18 MG/DL Creatinine 0.92 0.60-1.30 MG/DL Estimat Glomerular Filtration Rate 58 BUN/Creatinine Ratio 15 Glucose Level 244 H 70-105 MG/DL Calcium Level 10.2 H 8.5-10.1 MG/DL Corrected Calcium 10.2 H 8.5-10.1 MG/DL Total Bilirubin 1.8 H 0.1-1.0 MG/DL Aspartate Amino Transf (AST/SGOT) 43 H 5-34 U/L Alanine Aminotransferase (ALT/SGPT) 35 0-55 U/L Alkaline Phosphatase 85 40-136 U/L Troponin I < 0.028 <0.028 NG/ML B-Type Natriuretic Peptide 88.2 <100.0 PG/ML Total Protein 7.9 6.4-8.2 GM/DL Albumin 4.0 3.2-4.5 GM/DL Urine Color YELLOW Urine Clarity CLEAR Urine pH 6 5-9 Urine Specific Klemme 1.020 1.016-1.022 Urine Protein 2+ H NEGATIVE Urine Glucose (UA) 3+ H NEGATIVE Urine Ketones 2+ H NEGATIVE Urine Nitrite NEGATIVE NEGATIVE Urine Bilirubin NEGATIVE NEGATIVE Urine Urobilinogen NORMAL NORMAL MG/DL Urine Leukocyte Esterase NEGATIVE NEGATIVE Urine RBC (Auto) 1+ H NEGATIVE Urine RBC NONE /HPF Urine WBC RARE /HPF Urine Squamous Epithelial Cells 2-5 /HPF Urine Crystals NONE /LPF Urine Amorphous Sediment RARE ESTELA URATES H /LPF Urine Bacteria TRACE /HPF Urine Casts NONE /LPF Urine Mucus NEGATIVE /LPF Urine Culture Indicated CULTURE PENDING Lactic Acid Level 3.41 *H 0.50-2.00 MMOL/L My Orders Orders - GABE HARMON MD Lactated Ringers (Lr 1000 Ml Iv Solution (12/11/18 07:54) Cbc With Automated Diff (12/11/18 08:05) Comprehensive Metabolic Panel (12/11/18 08:05) Blood Culture (12/11/18 08:05) Sputum Culture (12/11/18 08:05) Urinalysis (12/11/18 08:05) Urine Culture (12/11/18 08:05) Protime With Inr (12/11/18 08:05) Partial Thromboplastin Time (12/11/18 08:05) Chest 1 View, Ap/Pa Only (12/11/18 08:05) Ed Iv/Invasive Line Start (12/11/18 08:05) Troponin I (12/11/18 08:05) Vital Signs Adult Sepsis Patie Q15M (12/11/18 08:05) O2 (12/11/18 08:05) Remove Rings In Anticipation O (12/11/18 08:05) Lactic Acid Analyzer (12/11/18 08:05) Lactated Ringers (Lr 1000 Ml Iv Solution (12/11/18 08:05) Catheter(Urinary) Insert & Ass 03,15 (12/11/18 08:05) Acetaminophen Suppository (Tylenol Suppo (12/11/18 08:05) Fecal Occult Bedside (12/11/18 08:15) BNP (12/11/18 08:41) Ct Chest/Abdomen/Pelvis W (12/11/18 09:07) Iohexol Injection (Omnipaque 350 Mg/Ml 1 (12/11/18 09:15) Received Contrast (Hold Metformin- Contr (12/11/18 09:15) Ns (Ivpb) (Sodium Chloride 0.9% Ivpb Bag (12/11/18 09:15) Ekg Tracing (12/11/18 09:55) Cefepime Injection (Maxipime Injection) (12/11/18 10:15) Medications Given in ED Current Medications Medications Dose Ordered Sig/Xenia Route Start Time Stop Time Status Last Admin Dose Admin Iohexol 100 ml ONCE ONCE IV 12/11/18 09:15 12/11/18 09:16 DC 12/11/18 09:25 100 ML Lactated Ringer's 1,000 ml @ 0 mls/hr Q0M ONCE IV 12/11/18 08:05 12/11/18 08:07 DC 12/11/18 07:55 999 MLS/HR Sodium Chloride 100 ml ONCE ONCE IV 12/11/18 09:15 12/11/18 09:16 DC 12/11/18 09:25 80 ML Vital Signs/I&O 12/11/18 12/11/18 12/11/18 12/11/18 07:56 08:00 08:12 09:41 Temp 102.4 102.4 101.9 Pulse 103 100 Resp 20 19 B/P (MAP) 173/76 (108) 136/73 Pulse Ox 95 95 97 O2 Delivery Nasal Cannula Nasal Cannula Nasal Cannula O2 Flow Rate 2.00 2.00 Capillary Refill : Less Than 3 Seconds Blood Pressure Mean: 108 Progress Note : Progress Note Seen and evaluated. IV established by EMS. Second IV initiated on arrival. Labs, blood cultures, lactic acid, UA, Jimenez catheter and Hemoccult stool ordered. Tylenol 650 mg MA due to hypoactive bowel sounds and abdominal pain. LR 1 L bolus ordered. Chest x-ray. Monitor patient. CT chest, abdomen and pelvis ordered due to abdominal distention and to further evaluate for chest pathology. 1015: Patient was noted to be on hospice. This has been a recent addition and was started on hospice just a few days ago. Patient had subsequent significant decline at home over the last 2 days and I do believe that patient is suffering from pneumonia which may be aspiration related. Family admits that she has had some times when she is swallowing and breathing at the same time recently. She is having difficulty with taking her meds over the last 2 days. They would like to revoke hospice at this point and pursue further treatment for the pneumonia is suspected. I have asked for and received palliative care consult and Elliott Harmon RN and is seeing the family currently. I did discuss the case with Dr. Sadler and she accepts patient for admission, inpatient status. We will initiate cefepime. Patient does have penicillin allergy but has tolerated cephalosporins in the past. We will monitor for adverse reaction. Family indicates they would like to continue to pursue hospice on discharge if that is possible. Remains DO NOT RESUSCITATE. I did speak at length with the family regarding cycling of end-of-life with regard to illnesses and continual decline in level of functioning and status. They verbalized understanding. Admit inpatient status. Family agrees with plan. Diagnostic Imaging Diagonstic Imaging: Xray Plain Films/CT/US/NM/MRI: chest Comments NAME: EDWINA CORMIER [facility] REC#: [id number] PT STATUS: REG ER : 1935 PHYSICIAN: GABE HARMON MD ADMIT DATE: 12/11/18/ER Draft Date of Exam:12/11/18 CHEST 1 VIEW, AP/PA ONLY Indication: Weakness and lethargy. Time of exam: 8:32 AM Comparison is made with prior chest from 04/19/2018. The heart is enlarged. There are congestive changes throughout both lungs. No parenchymal consolidation is seen. No effusion or pneumothorax is identified. Impression: Findings consistent with congestive failure. Dictated on workstation # [id number] Dict: 12/11/18 0840 Trans: 12/11/18 0844 [facility] [id number] Interpreted by: DEONNA WEAVER MD Electronically signed by: Reviewed: Reviewed by Me Diagonstic Imaging: CT Plain Films/CT/US/NM/MRI: chest, abdomen, pelvis Comments NAME: EDWINA CORMIER REC#: [id number] PT STATUS: REG ER : 1935 PHYSICIAN: GABE HARMON MD ADMIT DATE: 12/11/18/ER Signed Date of Exam: 12/11/18 CT CHEST/ABDOMEN/PELVIS W PROCEDURE: CT chest, abdomen, and pelvis with contrast. TECHNIQUE: Multiple contiguous axial images were obtained through the chest, abdomen, and pelvis after the administration of intravenous contrast. Auto Exposure Controls were utilized during the CT exam to meet ALARA standards for radiation dose reduction. INDICATION: Generalized weakness. FINDINGS: No comparison available. The lungs were imaged in expiratory phase leading to dependent groundglass appearance. There is some atelectasis and septal line thickening in the bases likely reflecting mild pulmonary edema. 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 Heart size is normal. No pericardial effusion is seen. The aorta is normal in caliber. There are mitral annular calcifications. There is no axillary, supraclavicular lymphadenopathy. No enlarged mediastinal lymph nodes are seen. Mediastinal lymph nodes are somewhat more numerous than expected. Liver is steatotic. There is surface nodularity and widening of the periportal space in keeping with cirrhosis. No suspicious lesions are seen. Gallbladder is absent. No biliary ductal dilation. Portal vein is patent. Pancreas is normal. Spleen is normal. Adrenal glands are normal. Kidneys enhance symmetrically without focal lesion. No hydronephrosis. Urinary bladder is decompressed by Jimenez catheter. There are no dilated loops of large or small bowel. No bowel obstruction or inflammation. There are mildly enlarged retroperitoneal lymph nodes measuring up to 15 mm. Abdominal aorta is normal in caliber. There is no free fluid or air. There are no suspicious osseous lesions. There is mild compression fracture of T12. There is mild anterolisthesis of L4 on L5 due to facet arthropathy. IMPRESSION: 1. CT findings of hepatic cirrhosis. 2. Mild pulmonary edema. 3. Nonspecific mildly enlarged retroperitoneal lymph nodes, consider followup scan in 3 months. 4. Tracheobronchomalacia. Dictated by: Dictated on workstation # [id number] Dict: 12/11/18 0943 Trans: 12/11/18 1020 Interpreted by: ANUSHKA KATE MD Electronically signed by: ANUSHKA KATE MD 12/11/18 1020 Departure Communication (Admissions) Time/Spoke to Admitting Phy: 10:15 Impression Primary Impression: Pneumonia Qualified Codes: J18.1 - Lobar pneumonia, unspecified organism Additional Impressions: Lactic acidosis Dementia Qualified Codes: G30.9 - Alzheimer's disease, unspecified; F02.80 - Dementia in other diseases classified elsewhere without behavioral disturbance Disposition: ADMITTED INPATIENT Condition: Stable Admissions Decision to Admit Reason: Admit from ER (General) Decision to Admit/Date: Dec 11, 2018 Time/Decision to Admit Time: 10:15 Departure-Patient Inst. Referrals: EILEEN SADLER DO (PCP/Family) Primary Care Physician GABE HARMON MD Dec 11, 2018 08:14
[2018-12-11 08:29] LABS: BILIRUBIN,URINE NEGATIVE (NEGATIVE); CLARITY,URINE CLEAR; COLOR,URINE YELLOW; GLUCOSE, URINE (UA) 3+ (NEGATIVE); KETONES,URINE 2+ (NEGATIVE); LEUKOCYTE ESTERASE ,URINE NEGATIVE (NEGATIVE); NITRITE,URINE NEGATIVE (NEGATIVE); PH,URINE 6 (5-9); PROTEIN,URINE 2+ (NEGATIVE); UROBILINOGEN,URINE NORMAL (NORMAL)
[2018-12-11 08:31] LABS: BASOPHILS % (AUTO) 1 % (0-10); EOSINOPHILS # (AUTO) 0.2 10^3/uL (0.0-0.3); EOSINOPHILS % (AUTO) 2 % (0-10); HEMATOCRIT 32 % (35-52); HEMOGLOBIN 10.2 G/DL (11.5-16.0); LYMPHOCYTES # (AUTO) 0.7 X 10^3 (1.0-4.0); LYMPHOCYTES % (AUTO) 9 % (12-44); MEAN CORPUSCULAR HEMOGLOBIN 26 PG (25-34); MEAN CORPUSCULAR HGB CONC 32 G/DL (32-36); MEAN CORPUSCULAR VOLUME 81 FL (80-99); MEAN PLATELET VOLUME 10.4 FL (7.4-10.4); MONOCYTES # (AUTO) 0.6 X 10^3 (0.0-1.0); MONOCYTES % (AUTO) 8 % (0-12); NEUTROPHILS # (AUTO) 5.6 X 10^3 (1.8-7.8); NEUTROPHILS % (AUTO) 80 % (42-75); PLATELET COUNT 163 10^3/uL (130-400); RED CELL DISTRIBUTION WIDTH 14.5 % (10.0-14.5)
[2018-12-11 08:37] LABS: AMORPHOUS SEDIMENT,UR RARE AMOR URATES /LPF; BACTERIA,URINE TRACE /HPF; WBC,URINE RARE /HPF
[2018-12-11 08:38] LABS: INR 1.1 (0.8-1.4); PROTHROMBIN TIME PATIENT 14.6 SEC (12.2-14.7)
--- NOTE | 2018-12-11 08:44 | Diagnostic Imaging Report ---
Indication: Weakness and lethargy. Time of exam: 8:32 AM Comparison is made with prior chest from 04/19/2018. The heart is enlarged. There are congestive changes throughout both lungs. No parenchymal consolidation is seen. No effusion or pneumothorax is identified. Impression: Findings consistent with congestive failure. Dictated by: Dictated on workstation # [id number]
[2018-12-11 08:45] LABS: ALANINE AMINOTRANSFERASE 35 U/L (0-55); ALKALINE PHOSPHATASE 85 U/L (40-136); BILIRUBIN,TOTAL 1.8 MG/DL (0.1-1.0); BUN/CREATININE RATIO 15; CALCIUM 10.2 MG/DL (8.5-10.1); CARBON DIOXIDE 16 MMOL/L (21-32); CHLORIDE 105 MMOL/L (98-107); CREATININE SERUM 0.92 MG/DL (0.60-1.30); GFR ESTIMATED 58; GLUCOSE 244 MG/DL (70-105); POTASSIUM 4.2 MMOL/L (3.6-5.0); SODIUM 136 MMOL/L (135-145); TOTAL PROTEIN 7.9 GM/DL (6.4-8.2)
[2018-12-11] MEDS ORDERED: GLIM2TAB (08:47)
[2018-12-11] MEDS ORDERED: IOHEXOL 350 MG/ML 100 ML (OMNIPAQUE 350) VIAL IV ONE (09:15)
[2018-12-11] MEDS ORDERED: NS 100 ML (IVPB) BAG IV ONE (09:15)
[2018-12-11] MEDS: HOLD METFORMIN - RECEIVED CONTRAST 20 ML VIAL IV SCH ×2 (09:26→13:22)
--- NOTE | 2018-12-11 09:52 | Diagnostic Imaging Report ---
PROCEDURE: CT chest, abdomen, and pelvis with contrast. TECHNIQUE: Multiple contiguous axial images were obtained through the chest, abdomen, and pelvis after the administration of intravenous contrast. Auto Exposure Controls were utilized during the CT exam to meet ALARA standards for radiation dose reduction. INDICATION: Generalized weakness. FINDINGS: No comparison available. The lungs were imaged in expiratory phase leading to dependent groundglass appearance. There is some atelectasis and septal line thickening in the bases likely reflecting mild pulmonary edema. 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 Heart size is normal. No pericardial effusion is seen. The aorta is normal in caliber. There are mitral annular calcifications. There is no axillary, supraclavicular lymphadenopathy. No enlarged mediastinal lymph nodes are seen. Mediastinal lymph nodes are somewhat more numerous than expected. Liver is steatotic. There is surface nodularity and widening of the periportal space in keeping with cirrhosis. No suspicious lesions are seen. Gallbladder is absent. No biliary ductal dilation. Portal vein is patent. Pancreas is normal. Spleen is normal. Adrenal glands are normal. Kidneys enhance symmetrically without focal lesion. No hydronephrosis. Urinary bladder is decompressed by Jimenez catheter. There are no dilated loops of large or small bowel. No bowel obstruction or inflammation. There are mildly enlarged retroperitoneal lymph nodes measuring up to 15 mm. Abdominal aorta is normal in caliber. There is no free fluid or air. There are no suspicious osseous lesions. There is mild compression fracture of T12. There is mild anterolisthesis of L4 on L5 due to facet arthropathy. IMPRESSION: 1. CT findings of hepatic cirrhosis. 2. Mild pulmonary edema. 3. Nonspecific mildly enlarged retroperitoneal lymph nodes, consider followup scan in 3 months. 4. Tracheobronchomalacia. Dictated by: Dictated on workstation # [id number]
[2018-12-11] MEDS ORDERED: CEFEPIME INJECTION 2,000 MG in WATER (STERILE) FOR INJECTION 20 ML IV ONE (10:15)
--- NOTE | 2018-12-11 10:32 | NUR ---
Elliott Xiong in room with family.
--- NOTE | 2018-12-11 10:46 | NUR ---
ATTEMPTED TO CALL REPORT TO RN AT [id number]
[2018-12-11 11:09] VITALS: BP 128/63
--- NOTE | 2018-12-11 11:09 | NUR ---
PALLIATIVE CARE RN called to ED in consult for this patient who is recently admitted to [facility] for end stage dementia. She was doing well even last night eating sandwich before going to bed. This morning her condition was worsened she is suspected to have aspirated and is now with fever and Pneumonia/central vascular congestion. Long discussion was had by Dr. Xiong and then again with this RN on the declining process of dementia and the likelihood for repeat occurrences. Family understands but wants to give her chance to recover from this episode. They were not prepared for the rapidity of her decline.
[2018-12-11 12:08] VITALS: BP 128/63
[2018-12-11] MEDS ORDERED: GLIM4TAB PO (12:40)
[2018-12-11] MEDS ORDERED: ESCI10TA55 PO (12:42)
[2018-12-11] MEDS ORDERED: METF-397 PO (12:42)
[2018-12-11] MEDS ORDERED: GARL400T14 PO (12:42)
[2018-12-11] MEDS ORDERED: ARIP2TAB11 PO (12:43)
[2018-12-11] MEDS ORDERED: NITR100C10 PO (12:43)
--- NOTE | 2018-12-11 12:44 | NUR ---
SPOKE WITH THE PATIENTS ABOUT MEDICATIONS. HE HAD A LIST OF MEDICATIONS, I COMPARED IT WITH THE EXT MED HX. HE STATES HER TRAMADOL WAS WRITTEN TID HOWEVER SHE ONLY TAKES IT BID. SHE IS NOT CURRENTLY TAKING ANY OTC MEDS.
[2018-12-11] MEDS ORDERED: RT-ALBUTEROL SULF 2.5 MG/3 ML PRE-MIX VIAL INH PRN (12:45)
[2018-12-11] MEDS: NS IV 1000 ML 1,000 ML IV SCH (13:15)
[2018-12-11 16:30] VITALS: BP 148/65
--- NOTE | 2018-12-11 18:44 | History & Physicial ---
History of Present Illness History of Present Illness Reason for visit/HPI This is an 83 year old female with end stage dementia who was recently admitted to hospice. This morning she was very weak and lethargic therefore an ambulance was called and she was brought to the emergency room. She was found to be febrile with pneumonia and lactic acidosis. The family does state that she has had some recent choking with liquids so there was concern for possible aspira tion. The family wished to purse admission for IV antibiotics. Date of Admission Dec 11, 2018 at 10:29 Date Seen by a Provider: Dec 11, 2018 Time Seen by a Provider: 12:45 I consulted on this patient on 12/11/18 18:39 Attending Physician Sarah Sadler DO Admitting Physician Sarah Sadler DO Consult Allergies and Home Medications Allergies Coded Allergies: Penicillins (Verified Allergy, Unknown, 12/11/18) acetaminophen (Verified Allergy, Unknown, 12/11/18) clindamycin (Verified Allergy, Unknown, 12/11/18) erythromycin base (Verified Allergy, Unknown, 12/11/18) codeine (Verified Adverse Reaction, Unknown, 12/11/18) Home Medications Aripiprazole 2 Mg Tablet, 2 MG PO DAILY, (Reported) Escitalopram Oxalate 10 Mg Tablet, 10 MG PO DAILY, (Reported) Glimepiride 4 Mg Tablet, 4 MG PO BID, (Reported) Metformin HCl 500 Mg Tablet, 500 MG PO BID, (Reported) Nitrofurantoin Monohyd/M-Cryst 100 Mg Capsule, 1 CAP PO BID, (Reported) 10 DAY SUPPLY FILLED 12-02-18 Sitagliptin Phosphate 100 Mg Tablet, 100 MG PO DAILY, (Reported) Tramadol HCl 50 Mg Tablet, 50 MG PO BID, (Reported) Patient Home Medication List Home Medication List Reviewed: Yes Past Igoisdl-Kqudtz-Egosvo Hx Patient Social History Marrital Status: Alcohol Use: Denies Use Recreational Drug Use: No 2nd Hand Smoke Exposure: No Recent Foreign Travel: No Contact w/other who traveled: No Recent Hopitalizations: No Recent Infectious Disease Expo: No Surgeries Yes (HERNIA REP) Abdominal Respiratory No Cardiovascular Yes Hypertension Neurological Yes TIA Reproductive System : No Hx Reproductive Disorders: No Genitourinary Kidney Stones Gastrointestinal Yes Gastroesophageal Reflux Musculoskeletal Yes Arthritis, Fibromyalgia Endocrine History of Endocrine Disorders: Yes Endocrine Disorders: Diabetes, Non-Insulin dep HEENT Hearing Impairment: Denies Cancer Yes Skin Psychosocial History of Psychiatric Problem: No Integumentary History of Skin or Integumenta: No Blood Transfusions History of Blood Disorders: No Family Medical History Significant Family History: No Pertinent Family Hx Review of Systems Constitutional: fever, weakness EENTM: No see HPI, No no symptoms reported, No ear discharge, No hearing loss, No ear pain, No blurred vision, No double vision, No eye pain, No tearing, No vision loss, No dental problems, No hoarseness, No mouth pain, No mouth swelling, No epistaxis, No nose congestion, No nose pain, No throat pain, No throat swelling, No other Respiratory: No no symptoms reported, No see HPI, No cough, No dyspnea on exertion, No hemoptysis, No orthopnea, No phlegm, No short of breath, No s tridor, No wheezing, No other Cardiovascular: No no symptoms reported, No see HPI, No chest pain, No edema, No Hx of Intervention, No palpitations, No syncope, No vascular heart diseas, No other Gastrointestinal: No RUQ, No LUQ, No RLQ, No LLQ, No no symptoms reported, No see HPI, No abdominal pain, No constipation, No diarrhea, No dysphagia, No hematemesis, No heartburn, No jaundice, No loss of appetite, No melena, No nausea, No vomiting, No other Genitourinary: decreased output Musculoskeletal: muscle weakness Skin: No no symptoms reported, No see HPI, No change in color, No change in hair/nails, No dryness, No hx of skin cancer, No lesions, No lumps, No pruritus, No rash, No other Psychiatric/Neurological: Weakness, Other (dementia) Physical Exam Vital Signs Vital Signs - First Documented 12/11/18 12/11/18 07:56 12:31 Temp 102.4 Pulse 103 Resp 20 B/P (MAP) 173/76 (108) Pulse Ox 95 O2 Delivery Nasal Cannula O2 Flow Rate 2.00 FiO2 21 Capillary Refill : Less Than 3 Seconds Height, Weight, BMI Height: 5'6.00" Weight: 171lbs. 8.0oz. [id number]; 27.7 BMI Method:Stated General Appearance: No Apparent Distress (sleeping with oxygen in place) HEENT: Normal ENT Inspection Neck: Supple Respiratory: Crackles, Decreased Breath Sounds Cardiovascular: Regular Rate, Rhythm, Systolic Murmur Gastrointestinal: Normal Bowel Sounds, Non Tender, Soft Back: No CVA Tenderness Extremity: Non Tender, No Calf Tenderness, No Pedal Edema Neurologic/Psychiatric: Other (sleeping) Skin: Warm/Dry Comments Laboratory Tests 12/11/18 08:10: White Blood Count 7.0, Red Blood Count 3.91L, Hemoglobin 10.2L, Hematocrit 32L, Mean Corpuscular Volume 81, Mean Corpuscular Hemoglobin 26, Mean Corpuscular Hemoglobin Concent 32, Red Cell Distribution Width 14.5, Platelet Count 163, Mean Platelet Volume 10.4, Neutrophils (%) (Auto) 80H, Lymphocytes (%) (Auto) 9L , Monocytes (%) (Auto) 8, Eosinophils (%) (Auto) 2, Basophils (%) (Auto) 1, Neutrophils # (Auto) 5.6, Lymphocytes # (Auto) 0.7L, Monocytes # (Auto) 0.6, Eosinophils # (Auto) 0.2, Basophils # (Auto) 0.0, Prothrombin Time 14.6, INR Comment 1.1, Activated Partial Thromboplast Time 33, Sodium Level 136, Potassium Level 4.2, Chloride Level 105, Carbon Dioxide Level 16L, Anion Gap 15H, Blood Urea Nitrogen 14, Creatinine 0.92, Estimat Glomerular Filtration Rate 58, BUN/Creatinine Ratio 15, Glucose Level 244H, Calcium Level 10.2H, Corrected Calcium 10.2H, Total Bilirubin 1.8H, Aspartate Amino Transf (AST/SGOT) 43H, Alanine Aminotransferase (ALT/SGPT) 35, Alkaline Phosphatase 85, Troponin I < 0.028, B-Type Natriuretic Peptide 88.2, Total Protein 7.9, Albumin 4.0 12/11/18 08:20: Urine Color YELLOW, Urine Clarity CLEAR, Urine pH 6, Urine Specific [place] 1.020, Urine Protein 2+H, Urine Glucose (UA) 3+H, Urine Ketones 2+H, Urine Nitrite NEGATIVE, Urine Bilirubin NEGATIVE, Urine Urobilinogen NORMAL, Urine Leukocyte Esterase NEGATIVE, Urine RBC (Auto) 1+H, Urine RBC NONE, Urine WBC RARE, Urine Squamous Epithelial Cells 2-5, Urine Crystals NONE, Urine Amorphous Sediment RARE ESTELA URATESH, Urine Bacteria TRACE, Urine Casts NONE, Urine Mucus NEGATIVE, Urine Culture Indicated CULTURE PENDING 12/11/18 08:37: Lactic Acid Level 3.41*H 12/11/18 10:34: Lactic Acid Level 2.60*H Assessment/Plan Assessment and Plan 1. Pneumonia--cover with cefepime due to aspiration risk 2. Lactic Acidosis--gently hydrate, treat infection and monitor 3. Diabetes mellitus, II--SSI 4. Possible Aspiration--Dysphagia 2 diet once awake and alert 5. End Stage Dementia--recently placed on hospice, family knows prognosis is poor but wished to treat pneumonia and see if she responds, palliative care consulted 6. Hypertension--hold BP meds and monitor BP Admission Diagnosis Admission Status: Inpatient Order (span 2 midnights) Reason for Inpatient Admission: Patient will need IV antibiotics for at least 48hrs Clinical Quality Measures DVT/VTE Risk/Contraindication: Risk Factor Score Per Nursin RFS Level Per Nursing on Admit: 3=High SARAH SADLER DO Dec 11, 2018 18:44
[2018-12-11 20:00] VITALS: BP 134/67
[2018-12-11] MEDS: inSUlin ASPART (NovoLOG) 1 UNIT/0.01 ML (CHARGE PER UNIT) SC SCH (21:21)
[2018-12-12 00:28] VITALS: BP 137/63
[2018-12-12] MEDS: ACETAMINOPHEN 325 MG TABLET PO PRN ×2 (04:01→20:51)
[2018-12-12 04:43] VITALS: BP 112/68
[2018-12-12 05:34] LABS: BASOPHILS % (AUTO) 1 % (0-10); EOSINOPHILS # (AUTO) 0.5 10^3/uL (0.0-0.3); EOSINOPHILS % (AUTO) 6 % (0-10); HEMATOCRIT 28 % (35-52); HEMOGLOBIN 9.1 G/DL (11.5-16.0); LYMPHOCYTES # (AUTO) 1.4 X 10^3 (1.0-4.0); LYMPHOCYTES % (AUTO) 17 % (12-44); MEAN CORPUSCULAR HGB CONC 33 G/DL (32-36); MEAN CORPUSCULAR VOLUME 81 FL (80-99); MEAN PLATELET VOLUME 10.2 FL (7.4-10.4); MONOCYTES # (AUTO) 1.1 X 10^3 (0.0-1.0); MONOCYTES % (AUTO) 14 % (0-12); NEUTROPHILS # (AUTO) 4.8 X 10^3 (1.8-7.8); NEUTROPHILS % (AUTO) 62 % (42-75); PLATELET COUNT 151 10^3/uL (130-400); RED CELL DISTRIBUTION WIDTH 14.9 % (10.0-14.5); WHITE BLOOD COUNT 7.8 10^3/uL (4.3-11.0)
[2018-12-12 05:36] LABS: MEAN CORPUSCULAR HEMOGLOBIN 26 PG (25-34)
[2018-12-12] MEDS: inSUlin ASPART (NovoLOG) 1 UNIT/0.01 ML (CHARGE PER UNIT) SC SCH ×4 (05:54→22:11)
[2018-12-12] MEDS: NS IV 1000 ML 1,000 ML IV SCH (06:07)
[2018-12-12 06:14] LABS: ALBUMIN 3.4 GM/DL (3.2-4.5); BILIRUBIN,TOTAL 1.7 MG/DL (0.1-1.0); CALCIUM 9.1 MG/DL (8.5-10.1); CREATININE SERUM 0.94 MG/DL (0.60-1.30); POTASSIUM 3.5 MMOL/L (3.6-5.0); TOTAL PROTEIN 6.4 GM/DL (6.4-8.2)
[2018-12-12 07:45] VITALS: BP 132/68
--- NOTE | 2018-12-12 08:28 | Progress Note ---
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 SHE HAS END STAGE DEMENTIA - WAS ADMITTED WITH ASPIRATION PNEUMONIA/SEPSIS. FAMILY REPORTS THAT SHE WAS A LITTLE MORE ALERT THIS MORNING. STAFF REPORTS THAT SHE HAS BEEN ASLEEP DURING THEIR SHIFT. FAMILY REPORTS THAT THEY DID SIGN UP FOR HOSPICE, BUT SHE BECAME ACUTELY ILL AND HAD AN ACUTE DECLINE THAT THEY FELT WAS NOT DUE TO HER DEMENTIA AND THEY REQUESTED HOSPITALIZATION FOR THE ILLNESS. Review of Systems General: No Chills; Fatigue, Malaise HEENT: No Dysphasia Pulmonary: Dyspnea, Cough Cardiovascular: No: Chest Pain, Edema Gastrointestinal: No: Vomiting Genitourinary: Other (OSORIO IN PLACE) Neurological: Weakness, Confusion Focused Exam Lactate Level 12/11/18 08:37: Lactic Acid Level 3.41*H 12/11/18 10:34: Lactic Acid Level 2.60*H Objective Exam Last Set of Vital Signs Vital Signs Date Time Temp Pulse Resp B/P (MAP) Pulse Ox O2 Delivery O2 Flow Rate FiO2 12/12/18 04:43 98.6 94 16 112/68 (83) 93 Room Air 12/11/18 21:48 1.00 12/11/18 12:31 21 Capillary Refill : Less Than 3 Seconds I&O Intake and Output 12/12/18 00:00 Intake Total 1020 ml Output Total 1025 ml Balance -5 ml Intake Oral 0 ml IV Total 1020 ml Output Urine Total 1025 ml Daily Weight Change Unsure Unsure General: No Acute Distress, Other HEENT: Atraumatic Neck: Supple Lungs: Clear to Auscultation Heart: Regular Rate Abdomen: Normal Bowel Sounds, Soft, No Tenderness Skin: No Breakdown Psych/Mental Status: Other (SLEEPING) Results Lab Laboratory Tests 12/11/18 08:37: Lactic Acid Level 3.41*H 12/11/18 10:34: Lactic Acid Level 2.60*H 12/11/18 21:04: Glucometer 144H 12/12/18 05:00: White Blood Count 7.8, Red Blood Count 3.44L, Hemoglobin 9.1L, Hematocrit 28L, Mean Corpuscular Volume 81, Mean Corpuscular Hemoglobin 26, Mean Corpuscular Hemoglobin Concent 33, Red Cell Distribution Width 14.9H, Platelet Count 151, Mean Platelet Volume 10.2, Neutrophils (%) (Auto) 62, Lymphocytes (%) (Auto) 17, Monocytes (%) (Auto) 14H, Eosinophils (%) (Auto) 6, Basophils (%) (Auto) 1, Neutrophils # (Auto) 4.8, Lymphocytes # (Auto) 1.4, Monocytes # (Auto) 1.1H, Eosinophils # (Auto) 0.5H, Basophils # (Auto) 0.0, Sodium Level 135, Potassium Level 3.5L, Chloride Level 107, Carbon Dioxide Level 17L, Anion Gap 11, Blood U cristal Nitrogen 15, Creatinine 0.94, Estimat Glomerular Filtration Rate 57, BUN/Creatinine Ratio 16, Glucose Level 219H, Calcium Level 9.1, Corrected Calcium 9.6, Total Bilirubin 1.7H, Aspartate Amino Transf (AST/SGOT) 39H, Alanine Aminotransferase (ALT/SGPT) 31, Alkaline Phosphatase 66, Total Protein 6.4, Albumin 3.4 12/12/18 05:22: Glucometer 239H Assessment/Plan Assessment/Plan Assess & Plan/Chief Complaint PNEUMONIA - SUSPECTED ASPIRATION - PT ON CEFEPIME, WHITE COUNT STABLE LACTIC ACIDOSIS ON ADMISSION - PT TO CONTINUE TO HAVE GENTLE IV HYDRATION DM - PT IS ON SLIDING SCALE INSULIN AT THIS TIME, SUPPORTIVE CARE AT THIS TIME, MONITOR FSBS. DEMENTIA - END STAGE - PT WAS PLACE ON HOSPICE FOR THIS DIAGNOSIS - FAMILY WANTED TREATMENT OF SUSPECTED PNEUMONIA AND SHE WAS TAKEN OFF OF HOSPICE FOR THIS HOSPITALIZATION - PT REMAINS DNR/DNI Clinical Quality Measures DVT/VTE Risk/Contraindication: Risk Factor Score Per Nursin RFS Level Per Nursing on Admit: 3=High LOUISE QUEZADA MD Dec 12, 2018 08:28
--- NOTE | 2018-12-12 10:46 | NUR ---
PALLIATIVE CARE RN in to see the patient. is in the room and the patient is awake and alert today. She is hard of hearing on the left I believe and does not answer questions very readily. She has severe ES dementia and was on [facility] prior to her admission to the hospital. Will continue to treat the aspiration Pneumonia currently and continue working on discharge POC which will likely be again elect Hospice benefit at home.
[2018-12-12 12:45] VITALS: BP 134/68
--- NOTE | 2018-12-12 13:04 | NUR ---
Initial visit with pt and her , Josh. The pt is Shinto. She was kind and affectionate during our interaction.
[2018-12-12] MEDS ORDERED: CATHETER FLUSH 10 ML SYR IV PRN (13:15)
[2018-12-12] MEDS: CEFEPIME INJECTION 2,000 MG in WATER (STERILE) FOR INJECTION 20 ML IV SCH (15:07)
[2018-12-12 16:00] VITALS: BP 161/75
[2018-12-12 20:00] VITALS: BP 147/68
[2018-12-13 00:05] VITALS: BP 118/71
[2018-12-13 04:00] VITALS: BP 128/70
[2018-12-13] MEDS: NS IV 1000 ML 1,000 ML IV SCH ×2 (04:12→22:41)
[2018-12-13] MEDS: inSUlin ASPART (NovoLOG) 1 UNIT/0.01 ML (CHARGE PER UNIT) SC SCH ×4 (07:35→21:23)
[2018-12-13 07:44] VITALS: BP 146/77
[2018-12-13] MEDS ORDERED: NON-FORMULARY MEDICATION 1 EA EA (Escitalopram Oxalate 10 MG) PO SCH (09:00)
--- NOTE | 2018-12-13 10:07 | Progress Note ---
Subjective Date Seen by a Provider: Dec 13, 2018 Time Seen by a Provider: 09:40 Subjective/Events-last exam PT IS SLEEPY AGAIN THIS MORNING. STAFF AND FAMILY REPORTS THAT SHE WAS ALERT, ABLE TO ANSWER QUESTIONS POSED BY FAMILY AND THEN AFTER BREAKFAST SHE STARTED ON HER NAP AND HAS BEEN ASLEEP SINCE THAT TIME. Review of Systems General: No Chills; Fatigue Pulmonary: No Dyspnea; Cough Cardiovascular: No: Chest Pain Gastrointestinal: No: Vomiting Neurological: Weakness, Confusion Focused Exam Lactate Level 12/11/18 08:37: Lactic Acid Level 3.41*H 12/11/18 10:34: Lactic Acid Level 2.60*H Objective Exam Last Set of Vital Signs Vital Signs Date Time Temp Pulse Resp B/P (MAP) Pulse Ox O2 Delivery O2 Flow Rate FiO2 12/13/18 07:44 98.1 82 18 146/77 (100) 95 Nasal Cannula 2.00 12/11/18 12:31 21 Capillary Refill : Less Than 3 Seconds I&O Intake and Output 12/13/18 00:00 Intake Total 900 ml Output Total 1825 ml Balance -925 ml Intake Oral 900 ml Output Urine Total 1825 ml # Bowel Movements 2 Results Lab Laboratory Tests 12/12/18 11:37: Glucometer 176H 12/12/18 16:05: Glucometer 242H 12/12/18 21:26: Glucometer 306H 12/13/18 06:55: Glucometer 204H Microbiology 12/11/18 Blood Culture - Preliminary, Resulted No growth 12/11/18 Urine Culture - Final, Complete NO GROWTH Assessment/Plan Assessment/Plan Assess & Plan/Chief Complaint PNEUMONIA - SUSPECTED ASPIRATION - PT ON CEFEPIME, WHITE COUNT STABLE - SWITCH TO OMNICEF TOMORROW - ANTICIPATE DISCHARGE TOMORROW TO HOME WITH FAMILY. HOSPICE HAS BEEN NOTIFIED OF PLANNED DISCHARGE TO HOME TOMORROW IN CARE OF FAMILY AND [facility]. LACTIC ACIDOSIS ON ADMISSION - PT TO CONTINUE TO HAVE GENTLE IV HYDRATION DM - PT IS ON SLIDING SCALE INSULIN AT THIS TIME, SUPPORTIVE CARE AT THIS TIME, MONITOR FSBS. RESUME HOME REGIMEN ON DISCHARGE DEMENTIA - END STAGE - PT WAS PLACE ON HOSPICE FOR THIS DIAGNOSIS - FAMILY WANTED TREATMENT OF SUSPECTED PNEUMONIA AND SHE WAS TAKEN OFF OF HOSPICE FOR THIS HOSPITALIZATION - PT REMAINS DNR/DNI PT WILL FOLLOW UP WITH DR. CHANEL OUTPATIENT. Clinical Quality Measures DVT/VTE Risk/Contraindication: Risk Factor Score Per Nursin RFS Level Per Nursing on Admit: 3=High LOUISE QUEZADA MD Dec 13, 2018 10:07
[2018-12-13] MEDS ORDERED: CEFD300C3 PO (10:10)
--- NOTE | 2018-12-13 10:15 | Discharge Inst-Complex ---
PDI Med Rec & Follow Up Appt. New Medications: Cefdinir (Cefdinir) 300 Mg Capsule 300 MG PO BID, #10 CAP Continued Medications: Aripiprazole (Aripiprazole) 2 Mg Tablet 2 MG PO DAILY, TAB Escitalopram Oxalate (Escitalopram Oxalate) 10 Mg Tablet 10 MG PO DAILY, TAB Glimepiride (Glimepiride) 4 Mg Tablet 4 MG PO BID, TAB Metformin HCl (Metformin HCl) 500 Mg Tablet 500 MG PO BID, TAB Sitagliptin Phosphate (Januvia) 100 Mg Tablet 100 MG PO DAILY, TAB Tramadol HCl (Tramadol HCl) 50 Mg Tablet 50 MG PO BID, TAB Discontinued Medications: Nitrofurantoin Monohyd/M-Cryst (Nitrofurantoin [place]-Mcr 100 mg) 100 Mg Capsule 1 CAP PO BID for 10 Days, CAP 10 DAY SUPPLY FILLED 12-02-18 Prescription: Transmitted to Pharmacy Activity, Diet and PDI Resume Normal Activity: Yes Discharge Diet: Soft Diet Drink 6-8 Glasses of Fluid/Day: Yes Return to The Hospital For: call hospice to assist with acute concerns to determine if the patient needs to return to the hospital or if hospice can manage symptoms. Symptoms to Reoprt to : Appetite Changes, Fever Over 101 Degrees F, Pain/Pressure in Chest, Dizziness/Fainting For Problems or Questions: Contact Your Physician Infection Signs and Symptoms: Temperature Above 101 F LOUISE QUEZADA MD Dec 13, 2018 10:15
--- NOTE | 2018-12-13 10:50 | NUR ---
PALLIATIVE CARE RN rounding with Dr. Hall this morning. Patient is not awake currently but is said to have been awake and eaten breakfast. Family believes she is much better than on admission and plans are being made for discharge tomorrow back to home with [facility]. Addendum: 12/13/18 at 1057 by NOHEMI HARMON RN This RN notified [facility] of plan for discharge tomorrow with their services to resume. Family is supposed to talking with Hospice about equipment needs.
[2018-12-13 11:39] VITALS: BP 133/72
[2018-12-13] MEDS: CEFEPIME INJECTION 2,000 MG in WATER (STERILE) FOR INJECTION 20 ML IV SCH (13:59)
[2018-12-13 16:00] VITALS: BP 117/61
[2018-12-13 20:00] VITALS: BP 138/72
[2018-12-14] VITALS: BP 133/61
[2018-12-14 04:00] VITALS: BP 131/75
[2018-12-14] MEDS: inSUlin ASPART (NovoLOG) 1 UNIT/0.01 ML (CHARGE PER UNIT) SC SCH ×2 (05:32→11:26)
[2018-12-14 07:48] VITALS: BP 131/75
[2018-12-14 08:00] VITALS: BP 146/77
[2018-12-14 12:00] VITALS: BP 127/72
[2018-12-14] MEDS: CEFEPIME INJECTION 2,000 MG in WATER (STERILE) FOR INJECTION 20 ML IV SCH (13:31)
--- NOTE | 2018-12-14 14:30 | Progress Note - Hospitalist ---
Progress Note Progress Notes/Assess & Plan Date Seen 12/14/18 Time Seen by Provider: 14:24 Assessment & Plan The patient is stable and her family is ready to take her home. Arrangements have been made with hospice and they will enroll the patient upon arrival home. The patient is alert and pleasant. It appears she recognizes her family but not her surroundings. Physical exam: Lungs are clear to auscultation. CV shows a grade 2 systolic murmur heard at the right second intercostal space, down the left sternal border and to the apex. Extremities show no pedal edema. Impression: 1.dementia. 2.suspected aspiration and pneumonia. 3.dysphagia Plan: Discharge today. Medications as listed in the discharge sequence. Enroll in hospice today. PREM AARON MD Dec 14, 2018 14:30
[2018-12-14 15:51] VITALS: BP 127/72
--- NOTE | 2018-12-17 13:23 | Physician Query Clarification ---
PQ-Uncertain Diagnosis Admission/Discharge Admission Date: Dec 11, 2018 at 10:29 Discharge Date: Dec 14, 2018 at 15:57 The medical record reflects the following clinical scenario: History/Risk Factors: Aspiration pneumonia, dysphagia, UTI, Alzheimer's dementia Clinical Findings: Lactic acid 3.41, T102.4, P103, R 20, WBC 7.0 Treatment: IV Cefepime, IVF, Dysphagia 2 diet Question: Is Sepsis a clinically valid diagnosis? If yes, is it due to an infectious or noninfectious process? If infectious process please specify the infectious process. Sepsis was documented in the 12/12 PN with no further documentation in the medical record. Please document a response in Progress Note or Discharge Summary. 1. Yes, clinically valid, condition resolved. 2. No, condition ruled out. 3. Other, with explanation of clinical findings. 4. Undetermined, no explanation for clinical findings. PHYSICIAN RESPONSE Diagnosis clinically valid: No, conditon ruled out Please remember a lack of response to the above will prompt a phone page by CDI/Coding staff. In responding to this query, please exercise your independent professional judgment. The purpose of this communication is to more accurately reflect the complexity of your patients condition. The fact that a question is asked does not imply that any particular answer is desired or expected. Thank you for your timely response to this clarification. Requestors name: [employer] THIS PHYSICIAN QUERY FORM IS A PERMANENT PART OF THE MEDICAL RECORD HUY GALDAMEZ Dec 17, 2018 13:23 LOUSIE QUEZADA MD Dec 18, 2018 19:36
== END 2018-12-14 15:57 | disposition hospice, home (50) | DRG 178 ==
LOC: EDUNIT# 07:49 → ER 07:50 → 4TH 10:29
PROVIDERS: ADMIT Family Medicine; ATTEND Family Medicine
DX: J69.0 Pneumonitis due to inhalation of food and vomit (principal); E87.2 Acidosis; N39.0 Urinary tract infection, site not specified; R13.10 Dysphagia, unspecified; I10 Essential (primary) hypertension; K21.9 Gastro-esophageal reflux disease without esophagitis; E11.9 Type 2 diabetes mellitus without complications; Z66 Do not resuscitate; G30.9 Alzheimer's disease, unspecified; F02.80 Dementia in other diseases classified elsewhere, unspecified severity, without behavioral disturbance, psychotic disturbance, mood disturbance, and anxiety; R14.0 Abdominal distension (gaseous); M79.7 Fibromyalgia; M19.91 Primary osteoarthritis, unspecified site; R53.1 Weakness; C44.90 Unspecified malignant neoplasm of skin, unspecified; Z86.73 Personal history of transient ischemic attack (TIA), and cerebral infarction without residual deficits
CPT/HCPCS: 36415; 71045; 71260; 74177; 80053; 81000; 82274; 82962; 83605; 83880; 84484; 85025; 85610; 85730; 87040; 87088; 93005; 94760; 96361; 96365